=== PATIENT | female | born 1935 | race Caucasian/White ===

== ENCOUNTER 2017-05-20 15:52 | Inpatient (IN) | payer MEDICARE, OTHER ==
[~2017-05-20] VITALS: Ht 182.9 cm; Wt 87.5 kg
--- NOTE | 2017-05-20 15:52 | NUR ---
BIBPA SENT BY DR HIGGINS FROM [facility] C/O POSSIBLE UTI AND GENERALIZED WEAKNESS
--- NOTE | 2017-05-20 16:28 | NUR ---
RAC #20 IV ACCESS. BLOOD SAMPLE COLLECTED SENT TO LAB
--- NOTE | 2017-05-20 16:31 | NUR ---
CORPORATE BANKING OFFICER AT BEDSIDE
--- NOTE | 2017-05-20 16:38 | NUR ---
PT ABLE TO URINATE NO QUESADA NEEDED
[2017-05-20 16:42] LABS: PROTHROMBIN TIME 51.2 SECS (9.5-12.7)
[2017-05-20 16:44] LABS: ALANINE AMINOTRANSFERASE 18 U/L (12-78); ALBUMIN 3.7 g/dL (3.4-5.0); ALKALINE PHOSPHATASE 83 U/L (46-116); ASPARTATE AMINOTRANSFERASE 25 U/L (15-37); BILIRUBIN,DIRECT 0.1 mg/dL (0.0-0.2); BILIRUBIN,TOTAL 0.6 mg/dL (0.2-1.0); CALCIUM, SERUM 9.3 mg/dL (8.5-10.1); CARBON DIOXIDE 29 mmol/L (21-32); CHLORIDE 100 mmol/L (98-107); CREATININE 1.2 mg/dL (0.6-1.3); GLUCOSE 96 mg/dL (74-106); LIPASE 96 U/L (73-393); POTASSIUM 3.8 mmol/L (3.5-5.1); SODIUM SERUM 137 mmol/L (136-145); TOTAL PROTEIN, SERUM 8.1 g/dL (6.4-8.2); UREA NITROGEN, BLOOD 18 mg/dL (7-18)
[2017-05-20 16:45] LABS: APPEARANCE,URINE Cloudy (CLEAR); BILIRUBIN,URINE Negative (NEGATIVE); BLOOD, URINE Trace-intact Ery/uL (NEGATIVE); COLOR,URINE Yellow (YELLOW); KETONES,URINE Negative (NEGATIVE); LEUKOCYTE ESTERASE ,URINE Large (NEGATIVE); NITRITE, URINE Negative (NEGATIVE); PROTEIN,URINE Negative (NEGATIVE); UGLUCOSE Negative (NEGATIVE); UROBILINOGEN,URINE 0.2 EU/dL (0.2)
[2017-05-20 16:50] LABS: BASOPHILS # (AUTO) 0.1 /CMM (0.0-0.2); BASOPHILS % (AUTO) 0.6 % (0.0-2.0); EOSINOPHILS % (AUTO) 0.5 % (0.0-6.0); HEMATOCRIT 45 % (33-45); HEMOGLOBIN 14.6 g/dL (11.5-14.8); LYMPHOCYTES # (AUTO) 1.5 /CMM (0.8-4.8); LYMPHOCYTES % (AUTO) 13.8 % (20.0-44.0); MEAN CORPUSCULAR HEMOGLOBIN 30 PG (26.0-33.0); MEAN CORPUSCULAR HGB CONC 33 g/dl (31.0-36.0); MEAN CORPUSCULAR VOLUME 91 fL (82-100); MONOCYTES # (AUTO) 0.6 /CMM (0.1-1.30); MONOCYTES % (AUTO) 5.9 % (2.0-12.0); NEUTROPHILS # (AUTO) 8.5 /CMM (1.8-8.9); NEUTROPHILS % (AUTO) 79.2 % (43.0-81.0); PLATELET COUNT (AUTO) 183 /CMM (150-450); RDW COEFFICIENT OF VARIATION 14.2 (11.5-15.0); RED BLOOD CELL COUNT(AUTO) 4.92 MIL/uL (4.0-5.2); WHITE BLOOD COUNT (AUTO) 10.7 K/uL (4.3-11.0)
[2017-05-20 17:01] LABS: INR 4.54 (0.87-1.13)
--- NOTE | 2017-05-20 17:10 | NUR ---
PAGED DR JANN HIGGINS.
[2017-05-20 17:25] LABS: BACTERIA,URINE Rare /HPF (None Seen); SQUAMOUS EPITHELIAL CELL,UR Few /HPF (None Seen)
[2017-05-20] MEDS ORDERED: GABA-532 PO (17:38)
[2017-05-20] MEDS ORDERED: ACET-868 PO (17:38)
[2017-05-20] MEDS ORDERED: WARF3TAB6 PO (17:38)
[2017-05-20] MEDS ORDERED: LEVO88TA5 PO (17:38)
[2017-05-20] MEDS ORDERED: CALC-883 PO (17:38)
[2017-05-20] MEDS ORDERED: WARF2TAB6 PO (17:38)
[2017-05-20] MEDS ORDERED: PRAV80TA21 PO (17:38)
[2017-05-20] MEDS ORDERED: CHOL200026 PO (17:38)
[2017-05-20] MEDS ORDERED: TRAZ-147 PO (17:38)
[2017-05-20] MEDS ORDERED: ALLO100T PO (17:38)
[2017-05-20] MEDS ORDERED: LISI-607 PO (17:38)
[2017-05-20] MEDS ORDERED: METO-304 PO (17:38)
[2017-05-20] MEDS ORDERED: NITR100C11 PO (17:38)
[2017-05-20] MEDS ORDERED: TRAM50TA2 PO (17:38)
[2017-05-20] MEDS ORDERED: ASPI-991 PO (17:38)
--- NOTE | 2017-05-20 17:56 | NUR ---
PATIENT GOING TO [facility], ACCEPTED BY DR JANN HIGGINS DX UTI
[2017-05-20 19:00] VITALS: BP 137/87
[2017-05-20 20:00] VITALS: BP 139/71
--- NOTE | 2017-05-20 20:05 | NUR ---
MS RN NOTED: PATIENT RESTING IN BED, NO ACUTE DISTRESS NOTED. BREATHING EVEN AND UNLABORED, NO SOB NOTED. IV TO RAC IN PLACE. PATIENT WITH NO ADMIT ORDERS YET, CALLED DR. HIGGINS OFFICE, LEFT MESSAGE FOR ADMIT ORDERS, AWAITING CALL BACK. ALSO CALLED PATIENT DAUGHTER LISA AND LEFT A VOICEMAIL, . BED LOCKED AND IN LOWEST POSITION, CALL LIGHT IN REACH, WILL CONTINUE TO MONITOR.
--- NOTE | 2017-05-20 21:00 | NUR ---
MS RN NOTE: RECEIVED CALL BACK FROM DR. HIGGINS WITH ADMIT ORDERS AND RECONCILED MEDICATIONS. ORDERS NOTED AND CARRIED OUT. LIST OF MEDICATIONS FAXED TO PHARMACY. WILL CONTINUE TO MONITOR.
--- NOTE | 2017-05-21 06:10 | NUR ---
MS RN NOTED: PATIENT RESTING IN BED, NO ACUTE DISTRESS NOTED. BREATHING EVEN AND UNLABORED, NO SOB NOTED. IV TO RAC IN PLACE, INFUSING NS AT 50 ML/HR. BED LOCKED AND IN LOWEST POSITION, CALL LIGHT IN REACH, WILL ENDORSE TO DAY NURSE TO CONTINUE WITH PLAN OF CARE.
[2017-05-21 06:37] LABS: INR 2.88 (0.87-1.13)
[2017-05-21 06:45] LABS: CALCIUM, SERUM 8.7 mg/dL (8.5-10.1); CARBON DIOXIDE 25 mmol/L (21-32); CHLORIDE 106 mmol/L (98-107); GLUCOSE 94 mg/dL (74-106); POTASSIUM 3.6 mmol/L (3.5-5.1); SODIUM SERUM 142 mmol/L (136-145); UREA NITROGEN, BLOOD 15 mg/dL (7-18)
[2017-05-21 06:49] LABS: BASOPHILS % (AUTO) 0.4 % (0.0-2.0); EOSINOPHILS # (AUTO) 0.1 /CMM (0.0-0.7); EOSINOPHILS % (AUTO) 1.1 % (0.0-6.0); HEMATOCRIT 40 % (33-45); HEMOGLOBIN 13.4 g/dL (11.5-14.8); LYMPHOCYTES # (AUTO) 1.3 /CMM (0.8-4.8); LYMPHOCYTES % (AUTO) 17.1 % (20.0-44.0); MEAN CORPUSCULAR HEMOGLOBIN 30 PG (26.0-33.0); MEAN CORPUSCULAR HGB CONC 33 g/dl (31.0-36.0); MEAN CORPUSCULAR VOLUME 91 fL (82-100); MONOCYTES # (AUTO) 0.6 /CMM (0.1-1.30); MONOCYTES % (AUTO) 8.5 % (2.0-12.0); NEUTROPHILS # (AUTO) 5.4 /CMM (1.8-8.9); NEUTROPHILS % (AUTO) 72.9 % (43.0-81.0); PLATELET COUNT (AUTO) 163 /CMM (150-450); RDW COEFFICIENT OF VARIATION 13.8 (11.5-15.0); RED BLOOD CELL COUNT(AUTO) 4.42 MIL/uL (4.0-5.2); WHITE BLOOD COUNT (AUTO) 7.4 K/uL (4.3-11.0)
[2017-05-21 07:10] LABS: THYROID STIMULATING HORMONE 0.684 uIU/mL (0.358-3.74); URIC ACID 5.3 mg/dL (2.6-7.2)
--- NOTE | 2017-05-21 07:25 | NUR ---
MS RN OPENING RECEIVED REPORT ON PATIENT. PATIENT A/OX4 AT THIS TIME. PLEASANT DENIES SOB, DIFFICULTY BREATHING OR PAIN AT THIS TIME. PATIENT UPDATED ON CARE PLAN AND STATED NO FURTHER QUESTIONS AT THIS TIME. ALL NEEDS IN REACH, BED LOWERED AND LOCKED, RAILS UPX3 FOR SAFETY AND WILL ROUND Q2H OR LESS PER NEEDS. BED LOCKED CALL LIGHT IN REACH
[2017-05-21 08:00] VITALS: BP 137/69
[2017-05-21 08:24] VITALS: BP 137/69
--- NOTE | 2017-05-21 12:20 | NUR ---
MS RN NOTES PATIENT ACCIDENTALLY PULLED OUT HER IV WHILE REPOSITIONING SELF. PRESSURE AND DRESSING APPLIED BLEEDING STOPPED.
--- NOTE | 2017-05-21 19:11 | NUR ---
MS RN NOTES CALLED [facility] [phone] AND GAVE REPORT TO RUSLAN ELIZONDO. PATIENT STABLE AT THIS TIME AND AWARE OF TANSFER AND AGREEABLE. ALL NEEDS IN REACH, BED LOWERED AND LOCKED, RAILS UPX3 FOR SAFETY AND ALL DUE MEDS GIVEN AND ALL NEEDS MET. CARE ENDORSED TO CARO AYALA FOR SHEKHAR
--- NOTE | 2017-05-21 19:20 | NUR ---
MS/RN NOTES PT RECEIVED RESTING COMFORTABLY IN BED. A/OX3. ON ROOM AIR, BREATHING EVEN AND UNLABORED. NO S/S OF DISTRESS. DENIES SOB OR PAIN AT THIS TIME. IV TO RFA PATENT AND INTACT. PT TO BE DISCHARGED TO [facility] THIS EVENING AT 1999. BED IN LOW/LOCKED POSITION WITH CALL LIGHT IN REACH. SIDE RAILS UPX2. WILL CONTINUE TO MONITOR
--- NOTE | 2017-05-21 20:35 | NUR ---
MS/RN NOTES PT DISCHARGED TO [facility] IN STABLE CONDITION. DISCHARGE PAPERWORK SIGNED AND SENT WITH PT. COPIES IN CHART. H&P AND DISCHARGE SUMMARY COPY PROVIDED WITH PT ALONG WITH CD OF [facility]. IV TO RFA INSERTED TODAY AND REMAINED INTACT UPON D/C. ALL BELONGINGS SENT WITH PT.
== END 2017-05-21 20:35 | disposition short-term general hospital (02) | DRG 872 ==
LOC: ER 15:58 → MEDSG2 18:35
PROVIDERS: ADMIT Internal Medicine; ATTEND Internal Medicine
DX: A41.9 Sepsis, unspecified organism (principal); I48.0 Paroxysmal atrial fibrillation; N39.0 Urinary tract infection, site not specified; W19.XXXA Unspecified fall, initial encounter; T45.511A Poisoning by anticoagulants, accidental (unintentional), initial encounter; I10 Essential (primary) hypertension; E03.9 Hypothyroidism, unspecified; M10.9 Gout, unspecified; Z87.891 Personal history of nicotine dependence; M71.21 Synovial cyst of popliteal space [Baker], right knee; Y93.9 Activity, unspecified; Y92.89 Other specified places as the place of occurrence of the external cause; Y99.9 Unspecified external cause status
CPT/HCPCS: 36415; 80048-TC; 80076-TC; 81000-TC; 83690-TC; 84443-TC; 84550-TC; 85025-TC; 85610-TC; 85730-TC; 87081-TC; 87086-TC; 93971-TC; A4606; J0696; J2543; J7030; J7060; Z7610